=== PATIENT | male | born 2000 | race Caucasian/White ===

== ENCOUNTER 2023-07-16 09:07 | Outpatient (REF) | payer MEDICAID, SELFPAY ==
[2023-07-16 11:07] LABS: MANUAL DIFF FLAG NO
[2023-07-16 11:29] LABS: Basophils Absolute Auto 0.1 X10*3/uL (0.0-0.2); Basophils Percent Auto 1.4 % (0-2); Eosinophils Absolute Auto 0.1 X10*3/uL (0.0-0.4); Eosinophils Percent Auto 1.7 % (0-4); Hematocrit 48.3 % (42.0-52.0); Hemoglobin 15.4 g/dl (14.0-18.0); Imm Gran Abs Auto 0.01 X10*3/uL (0.00-0.03); Imm Gran Pct Auto 0.3 % (0.0-0.4); Lymphocytes Absolute Auto 1.4 X10*3/uL (1.2-4.9); Lymphocytes Percent Auto 40.1 % (20-40); Mean Corpuscular HGB Conc 31.9 g/dl (31.0-36.0); Mean Corpuscular Hemoglobin 26.3 pg (27.0-33.0); Mean Corpuscular Volume 82.4 fL (80.0-98.0); Mean Platelet Volume 10.6 fL (9.4-12.4); Monocytes Absolute Auto 0.4 X10*3/uL (0.1-1.2); Monocytes Percent Auto 10.1 % (2-11); Neutrophils Absolute Auto 1.7 x10*3/uL (2.0-8.3); Neutrophils Percent Auto 46.4 % (45-73); Platelet Count 277 X10*3/uL (160-400); Red Blood Count 5.86 X10*6/uL (4.60-5.80); Red Cell Distribution Width 12.7 % (11.0-16.0); White Blood Count 3.6 X10*3/uL (4.8-10.8)
[2023-07-16 11:39] LABS: Appearance Urine Clear; Color Urine Yellow; Glucose Urine UA Negative (Negative); Leukocyte Esterase Urine Negative (Negative); Nitrite Urine Negative (Negative); Specific Gravity - Urine 1.025 (1.005-1.025); Urine Blood Negative (Negative); Urine Ketones Negative (Negative); Urine Protein Negative (Neg-Trace)
[2023-07-16 12:46] LABS: Alanine Aminotransferase 17 U/L (0-40); Albumin Level 4.1 g/dL (3.5-5.0); Alkaline Phosphatase 63 U/L (39-117); Anion Gap 13 (12-20); Aspartate Amino Transferase 16 U/L (5-37); Bilirubin Total 0.8 mg/dL (0.0-1.0); Blood Urea Nitrogen 13 mg/dL (9-16); Calcium 9.7 mg/dL (8.4-10.2); Carbon Dioxide 28 mmol/L (22-29); Chloride 102 mmol/L (96-108); Cholesterol 194 mg/dL (<200); Estimated Glomerular Filt Rate > 60; Glucose Fasting 74 mg/dL (60-99); HDL Cholesterol 45 mg/dL (>40); LDL Cholesterol Calculated 123 mg/dL (<100); Potassium 3.9 mmol/L (3.3-5.1); Sodium 139 mmol/L (135-145); Total Protein 7.1 g/dL (6.5-8.0); Triglycerides 131 mg/dL (<150)
[2023-07-16 13:04] LABS: TSH reflex Free T4 0.76 uIU/mL (0.32-4.0)
== END 2023-07-16 09:08 | disposition home or self-care (01) ==
LOC: HO.HMGCLDS 09:07
PROVIDERS: PCP Nurse Practitioner Family; Visit Provider Nurse Practitioner Family
DX: Z00.00 Encounter for general adult medical examination without abnormal findings (principal)
CPT/HCPCS: 36415; 80053; 80061; 81003; 84443; 85025

== ENCOUNTER 2023-07-28 08:18 | Outpatient (AMB) | payer MEDICAID, SELFPAY ==
--- NOTE | 2023-07-28 07:24 | MHC.PC.OV ---
Intake Visit Reasons: Follow up Iphone [phone] Allergies No Known Allergies [No Known Allergies*] Allergy (Verified 03/18/23 10:21) Medication List - Last Reconciled 07/28/23 by MI Vázquez sertraline 50 mg PO DAILY Tobacco use date assessed: 03/18/23 HPI Follow up Iphone [phone] HPI Details Anxiety/depression: Pt is currently taking sertraline 25mg. He reports that this is helpful but may need increased. Will increase to 50mg. Pt is seeing a psychiatrist and a therapist. Denies any SI and HI. PFSH Family History Maternal Uncle Substance use disorder Maternal Grandmother Mental health disorder Mother Mental health disorder Social History Housing: House Patient Tobacco Use Status: Never used Tobacco e-Cigarette/Vaping Use: Never Used Second Hand Smoke Exposure: Yes service: No Current occupational status: employed Current occupation: [employer] Current occupational exposures/hazards: No Cognitive needs: No Hearing needs: No Vision needs: No Questionnaire Thrive Questionnaire Date Thrive assessed: 03/18/23 KAPIL-7 AMB Questionnaire KAPIL-7 Date KAPIL - 7 assessed: 03/18/23 Source: Developed by Drs. Miguel Moura, Jessica Tolbert, Sim Garzon and colleagues, with an educational rick from [employer]. Review of Systems Const Reports as per HPI Physical exam (Primary Care) Tobacco/Smoking Status: Tobacco use Status Tobacco use date assessed 03/18/23 07/28/23 07:26 Patient Tobacco Use Status Never used Tobacco 07/28/23 07:26 e-Cigarette/Vaping Use Never Used 07/28/23 07:26 Thrive Assessment: Date of Thrive Assessment Date Thrive assessed 03/18/23 07/28/23 07:26 Const General: cooperative Orientation/consciousness: patient oriented x3 Neuro General: patient oriented x3 Psych Appearance: grossly normal Mental Status: mental status grossly normal Speech and movement: Clear speech present Affect: normal affect Attitude: cooperative Thought process: Normal thought process present Thought content: Normal thought content present Insight: Good insight present (Psych) Judgement: Good judgement present (Psych) Telehealth Telehealth Location of provider rendering services: practice address Location of patient: address on file Patient Identification confirmed using: Name, : Yes Telehealth method: video Patient verbally consented to treatment: Yes Patient verbally consented to billing insurance company: Yes Patient informed of any privacy concerns related to visit: Yes Minutes spent on Phone/Video with Pt.: 10 Assessment and Plan Assessment & Plan (1) Anxiety and depression: Code(s): F41.9 - Anxiety disorder, unspecified; F32.A - Depression, unspecified Plan: Sertraline increased from 25mg to 50mg Plan The patient agreed to the use of a medical service representative for this encounter. Scribed for SAMY Cruz-BC by Kristin Valerio medical service representative, on 07/28/2023 at 07:20 EST. Orders: Orders Complete Blood Count Auto Diff Today F32.A - Depression, unspecified, F41.9 - Anxiety disorder, unspecified Comprehensive Met. Panel Today F32.A - Depression, unspecified, F41.9 - Anxiety disorder, unspecified TSH reflex Free T4 Today F32.A - Depression, unspecified, F41.9 - Anxiety disorder, unspecified UA CC w/rflx Micro + Cult Today F32.A - Depression, unspecified, F41.9 - Anxiety disorder, unspecified Medications: Changed From sertraline 25 mg PO DAILY 90 tabs 1RF To sertraline 50 mg PO DAILY 90 tabs 1RF Coding Level of Care Code Tele Est Pt Level 3 (32226) Diagnoses Anxiety and depression F41.9; F32.A
== END 2023-07-28 10:23 | disposition home or self-care (01) ==
PROVIDERS: PCP Nurse Practitioner Family; Visit Provider Nurse Practitioner Family
DX: F41.9 Anxiety disorder, unspecified (principal); F32.A Depression, unspecified
CPT/HCPCS: 99213

== ENCOUNTER 2024-01-18 08:21 | Outpatient (AMB) | payer BC, SELFPAY ==
[2024-01-18 09:04] VITALS: BP 120/72; PULSE 62; O2SAT 98; BMI 26.1
--- NOTE | 2024-01-18 09:04 | MHC.OFFWIV ---
Intake Vital Signs 01/18/24 09:04 Height 5 ft 10 in Weight 182 lb BMI 26.1 BP 120/72 Blood Pressure Location Lt brachial Position Sitting Pulse 62 Pulse Source Pulse Oximeter Pulse Oximetry (%) 98 Oxygen Delivery Method Room Air Intake Visit Reasons: ? Sinus infection Intake Note: Patient is here today with left side of nostril under left eye, losing sleep, took Advil which seemed to have helped. Patient Tobacco Use Status: Never used Tobacco Allergies No Known Allergies [No Known Allergies*] Allergy (Verified 01/18/24 10:16) Medication List - Last Reconciled 01/18/[address] [facility] methylphenidate HCl 5 mg PO BID methylphenidate HCl 10 mg PO BID sertraline 50 mg PO DAILY Do you need a note to return to daycare/school/sports/work: No HPI HPI Comments History of Present Illness Details cold sx for a few weeks having pain under left eye/cheek area that started over the last few days + sinus congestion, not a lot of drainage denies bloody drainage not using any nasal sprays denies fever PFSH Family History Maternal Uncle Substance use disorder Maternal Grandmother Mental health disorder Mother Mental health disorder Social History Housing: House Patient Tobacco Use Status: Never used Tobacco e-Cigarette/Vaping Use: Never Used Second Hand Smoke Exposure: Yes service: No Current occupational status: employed Current occupation: [employer] Current occupational exposures/hazards: No Cognitive needs: No Hearing needs: No Vision needs: No Review of Systems Const All systems reviewed & are unremarkable except as noted in HPI and below Physical Exam Vital Signs: Last Vital Signs Pulse 62 01/18/24 09:04 BP 120/72 01/18/24 09:04 Pulse Ox 98 01/18/24 09:04 Oxygen Delivery Method Room Air 01/18/24 09:04 BMI result Body Mass Index 26.1 Const Other: Awake alert NAD Sclera and conjunctiva clear bilat TM intact and clear bilat Nares with mucoid discharge worse on the left side, nares erythematous and edematous, frontal and maxillary sinus tenderness bilat worse on the left MMM, pharynx positive postnasal drip RRR LS CTAB Assessment & Plan Assessment & Plan (1) Acute bacterial sinusitis: Code(s): J01.90 - Acute sinusitis, unspecified; B96.89 - Other specified bacterial agents as the cause of diseases classified elsewhere Plan . Medications: New amoxicillin-pot clavulanate 875-125 mg 1 tab PO BID 14 tabs 0RF 7 days Coding Level of Care Code Est Pt Level 3 (82801) Diagnoses Acute bacterial sinusitis J01.90; B96.89
== END 2024-01-18 10:20 | disposition home or self-care (01) ==
PROVIDERS: PCP Nurse Practitioner Family; Visit Provider Nurse Practitioner Family
DX: J01.90 Acute sinusitis, unspecified (principal); B96.89 Other specified bacterial agents as the cause of diseases classified elsewhere
CPT/HCPCS: 99213

== ENCOUNTER 2024-04-25 09:02 | Outpatient (AMB) | payer BC, SELFPAY ==
--- NOTE | 2024-04-25 09:07 | MHC.PC.OV ---
Vital Signs 04/25/24 09:11 Height 5 ft 10 in Weight 183 lb BMI 26.3 BP 100/60 Blood Pressure Location Rt brachial Position Sitting Pulse 66 Pulse Source Pulse Oximeter Pulse Oximetry (%) 98 Oxygen Delivery Method Room Air Intake Visit Reasons: PE Intake Note: Patient here for physical exam Allergies No Known Allergies [No Known Allergies*] Allergy (Verified 04/25/24 09:33) Medication List - Last Reconciled 04/25/24 by MI Vázquez methylphenidate HCl 20 mg PO BID sertraline 50 mg PO DAILY Tobacco use date assessed: 04/25/24 Dental Screening Dental Screen Date: 04/25/24 Did you have a dental visit in the last 12 months?: No Did you have a dental problem in the last 6 months where you did not have access to dental care?: No Was dental information given to patient?: Patient has dentist HPI PE HPI Details Pt is here for a PE. Labs have already been ordered. Pt sees a therapist and a psychiatrist. Denies any SI and HI. PFSH Family History Maternal Uncle Substance use disorder Maternal Grandmother Mental health disorder Mother Mental health disorder Social History Housing: House Patient Tobacco Use Status: Never used Tobacco e-Cigarette/Vaping Use: Never Used Second Hand Smoke Exposure: Yes service: No Current occupational status: employed Current occupation: [employer] Current occupational exposures/hazards: No Cognitive needs: No Hearing needs: No Vision needs: No Questionnaire PHQ-9 Over the last 2 weeks, how often have you been bothered by any of the following problems? 1. Little interest or pleasure in doing things: not at all 2. Feeling down, depressed, or hopeless: several days 3. Trouble falling or staying asleep, or sleeping too much: several days 4. Feeling tired or having little energy: several days 5. Poor appetite or overeating: several days 6. Feeling bad about yourself - or that you are a failure or have let yourself or your family down: more than half the days 7. Trouble concentrating on things, such as reading the newspaper or watching television: not at all 8. Moving or speaking so slowly that other people could have noticed. Or the opposite - being so fidgety or restless that you have been moving around a lot more than usual: not at all 9. Thoughts that you would be better off or of hurting yourself in some way: several days Total score: 7 Depression Screening Interpretation: Negative (denies any SI or HI) Depression Screening Done: Yes 25596 - PHQ-9 Billing: Yes Source: Developed by Drs. Miguel Moura, Jessica Tolbert, Sim Garzon and colleagues, with an educational rick from [employer]. Thrive Questionnaire Date Thrive assessed: 04/25/24 I am a: Patient What is your living situation today?: I have a steady place to live Within the past 12 months, did the food you bought not last and you didn't have the money to get more?: Never true Within the past 12 months, did you worry whether your food would run out before you got money to buy more?: Never true Do you have trouble paying for medicines?: No Do you have trouble getting transportation to medical appointments?: No Do you have trouble paying your heating and electricity bill?: No Do you have trouble taking care of your child, family member or friend?: No Do you have trouble with day-to-day activities such as bathing, preparing meals, shopping, managing finances, etc.?: No Are you currently unemployed and looking for a job?: No Are you interested in more education?: No Currently or been in a relationship where the following occur: I choose not to answer this question THRIVE Score: 0 AUDIT C Alcohol Use Questionnaire (AUDIT-C) 1. How often do you have a drink containing alcohol?: Monthly or less 2. How many drinks containing alcohol do you have on a typical day when you are drinking?: 1 or 2 3. How often do you have six or more drinks on one occasion?: Never Total Score: 1 Score Reviewed/Action Taken: No KAPIL-7 AMB Questionnaire KAPIL-7 Date KAPIL - 7 assessed: 04/25/24 Feeling nervous, anxious, or on edge: 2 = More than half the days Not being able to stop or control worryin = Several days Worrying too much about different things: 1 = Several days Trouble relaxin = Several days Being so restless that it is hard to sit still: 3 = Nearly every day Becoming easily annoyed or irritable: 2 = More than half the days Feeling afraid as if something awful might happen: 1 = Several days Total KAPIL-7 score (0-4 normal; 5-9 mild; 10-14 moderate; 15-21 severe): 11 Source: Developed by Drs. Miguel Moura, Jessica Tolbert, Sim Garzon and colleagues, with an educational rick from [employer]. KAPIL-7 Assessment Billing KAPIL-7 Assessment Tool: KAPIL-7 Assessment 75755 (has a psychiatrist and psychologist, denies any SI or HI) Review of Systems Const Denies chills and Denies fever(s) Eyes Denies blurry vision ENT Denies vertigo, Denies dizziness and Denies sore throat Card Denies chest pain at rest, Denies chest pain with activity, Denies diaphoresis, Denies dyspnea and Denies dyspnea on exertion Resp Denies cough, Denies dyspnea, Denies dyspnea on exertion and Denies wheezing GI Denies abdominal pain, Denies melena, Denies hematochezia, Denies constipation, Denies diarrhea and Denies loose stools Denies hematuria Musc Denies numbness and Denies tingling Skin/Breast Denies lesions Neuro Denies vertigo, Denies dizziness, Denies numbness and Denies tingling Psych Denies anxiety, Denies depression, Denies homicidal ideation, Denies suicidal ideation and Denies other (substance abuse) Aller/Immun Denies wheezing Physical exam (Primary Care) Vital Signs: Last Vital Signs Pulse 66 04/25/24 09:11 BP 100/60 04/25/24 09:11 Pulse Ox 98 04/25/24 09:11 Oxygen Delivery Method Room Air 04/25/24 09:11 BMI result Body Mass Index 26.3 Tobacco/Smoking Status: Tobacco use Status Tobacco use date assessed 04/25/24 04/25/24 09:14 Patient Tobacco Use Status Never used Tobacco 04/25/24 09:08 e-Cigarette/Vaping Use Never Used 04/25/24 09:08 PHQ-9: PHQ-9 Score PHQ-9: Total score 7 04/25/24 09:18 Depression Screening Interpretation: Negative (denies any SI or HI) Thrive Assessment: Date of Thrive Assessment Date Thrive assessed 04/25/24 04/25/24 09:18 Currently or been in a relationship where the following occur: I choose not to answer this question Const General: cooperative Nutritional Appearance: well nourished Orientation/consciousness: patient oriented x3 HENMT Head: Yes normal to inspection, Yes normocephalic and Yes atraumatic Ears: TM's normal bilaterally Eyes General: appearance normal, both eyes and all related structures Alignment and Position: alignment normal and position normal Neck Neck: Yes normal visual inspection and Yes no lymphadenopathy Thyroid: Thyroid normal Resp Effort & Inspection: normal respiratory effort Auscultation: clear to auscultation bilaterally Cardio Rate: regular rate Rhythm: regular rhythm Heart sounds: S1 normal heart sound present, S2 normal heart sound present and no murmurs GI Palpation (GI): Soft to palpation and nontender Auscultation: normal bowel sounds Male General Exam: Yes normal external exam Penis: normal penis Scrotum: scrotum normal, testes descended bilaterally and no inguinal hernias Testes: no testicular mass Skin Rashes: no rashes Neuro General: patient oriented x3, moves all extremities, no focal motor deficits and deep tendon reflexes 2+ bilaterally Romberg Test: Negative Psych Appearance: grossly normal Mental Status: mental status grossly normal Speech and movement: Normal speech and movement present Affect: normal affect Attitude: cooperative Thought process: Normal thought process present Thought content: Normal thought content present Insight: Good insight present (Psych) Judgement: Good judgement present (Psych) Assessment and Plan Assessment & Plan (1) Physical exam: Code(s): Z00.00 - Encounter for general adult medical examination without abnormal findings Plan: Labs have been ordered (2) Anxiety and depression: Code(s): F41.9 - Anxiety disorder, unspecified; F32.A - Depression, unspecified Plan: Seeing a therapist and psychiatrist Plan The patient agreed to the use of a director medical surgical for this encounter. Scribed for MI Cruz by Kristin Valerio director medical surgical, on 04/25/2024 at 09:25 EST. Coding Level of Care Code Est Pt Prev Care 18-39y(37146) Diagnoses Physical exam Z00.00 Anxiety and depression F41.9; F32.A Additional Codes KAPIL-7 Assessment Billing - KAPIL-7 Assessment Tool: KAPIL-7 Assessment 20592 ([id number])
[2024-04-25 09:11] VITALS: BP 100/60; PULSE 66; O2SAT 98; BMI 26.3
== END 2024-04-25 09:31 | disposition home or self-care (01) ==
PROVIDERS: PCP Nurse Practitioner Family; Visit Provider Nurse Practitioner Family
DX: Z00.00 Encounter for general adult medical examination without abnormal findings (principal); F41.9 Anxiety disorder, unspecified; F32.A Depression, unspecified
CPT/HCPCS: 99395

== ENCOUNTER 2025-05-24 08:28 | Outpatient (AMB) | payer OTHER, SELFPAY ==
--- NOTE | 2025-05-24 08:38 | MHC.PC.OV ---
Vital Signs 05/24/25 08:39 Height 5 ft 10 in Weight 189 lb BMI 27.1 BP 126/80 Blood Pressure Location Lt brachial Position Sitting Pulse 60 Pulse Source Pulse Oximeter Temp 97.8 F Temp Source Oral Pulse Oximetry (%) 98 Oxygen Delivery Method Room Air Intake Visit Reasons: PE Insurance Case Manager Required: No Accompanied by: Self / Same As Patient Allergies No Known Allergies (No Known Allergies*) Allergy (Verified 05/24/25 08:57) Medication List - Last Reconciled 05/24/25 by SAMY Vázquez- fluoride (sodium) 1.1% (Sodium Fluoride 5000 Dry Mouth) PO BID hydroxyzine pamoate 25 - 50 mg PO BID PRN methylphenidate HCl ER ([place]a) 54 mg PO QAM sertraline 100 mg PO DAILY Tobacco use date assessed: 05/24/25 Dental Screening Dental Screen Date: 05/24/25 Did you have a dental visit in the last 12 months?: Yes Did you have a dental problem in the last 6 months where you did not have access to dental care?: No Was dental information given to patient?: Patient has dentist HPI PE HPI Details History of Present Illness The patient is a 24-year-old male presenting with a follow-up physical examination. He denies experiencing any chest pain, dyspnea, abdominal pain, hematochezia, constipation, or diarrhea. He also denies any suicidal or homicidal ideation. The patient is currently employed at [employer] and reports doing well overall. He is under the care of a psychiatrist and a therapist, indicating ongoing mental health management. Health Maintenance Social History - Employment: Works at [employer] Review of Systems - Cardiovascular: Denies chest pain - Respiratory: Denies dyspnea - Gastrointestinal: Denies abdominal pain, hematochezia, constipation, diarrhea - Psychiatric: Denies suicidal ideation, denies homicidal ideation Physical Exam General: Cooperative, healthy appearing, comfortable, no acute distress and well developed Orientation: Patient oriented x3 Limitations: No limitations Head: Normal to inspection Ears: Hearing grossly normal bilaterally Nose: Normal external nose present Face and sinus: Normal facial exam Eyes: Appearance normal, both eyes and all related structures Neck: Normal visual inspection and Yes full ROM Respiratory: Normal respiratory effort and able to speak in complete sentences. Clear to auscultation bilaterally Cardiovascular: Regular rate and rhythm. Normal S1 and S2 GI: Normal to inspection. Soft to palpation and nontender : testicles without masses/lesions and no hernias appreciated Skin: No rashes or lesions noted Neuro: Patient oriented x3 Extremities: Normal to inspection Results Plan The patient is advised to complete the ordered laboratory tests promptly to facilitate a comprehensive assessment during the follow-up physical examination. Continued engagement with mental health services, including his psychiatrist and therapist, is recommended to maintain his current well-being. Discussion Notes I discussed the importance of completing the laboratory tests soon to ensure a thorough evaluation during the follow-up visit. We also reviewed the patient's mental health management, emphasizing the value of ongoing therapy and psychiatric support. Patient Instructions - Complete the lab tests as soon as possible. - Continue attending sessions with your psychiatrist and therapist. [facility] Surgical History No pertinent past surgical history Family History Maternal Uncle Substance use disorder Maternal Grandmother Mental health disorder Mother Mental health disorder Social History Housing: House Patient Tobacco Use Status: Never used Tobacco e-Cigarette/Vaping Use: Never Used Second Hand Smoke Exposure: Yes service: No Current occupational status: employed Current occupation: [employer] Current occupational exposures/hazards: No Cognitive needs: No Hearing needs: No Vision needs: No Questionnaire PHQ-9 Over the last 2 weeks, how often have you been bothered by any of the following problems? 1. Little interest or pleasure in doing things: several days 2. Feeling down, depressed, or hopeless: several days 3. Trouble falling or staying asleep, or sleeping too much: more than half the days 4. Feeling tired or having little energy: more than half the days 5. Poor appetite or overeating: more than half the days 6. Feeling bad about yourself - or that you are a failure or have let yourself or your family down: more than half the days 7. Trouble concentrating on things, such as reading the newspaper or watching television: more than half the days 8. Moving or speaking so slowly that other people could have noticed. Or the opposite - being so fidgety or restless that you have been moving around a lot more than usual: several days 9. Thoughts that you would be better off or of hurting yourself in some way: not at all Total score: 13 Depression Screening Interpretation: Positive (denies any SI or HI, has a psychiatrist and therapist) Depression Screening Follow-up: Existing condition and In treatment Depression Screening Done: Yes 35681 - PHQ-9 Billing: Yes Source: Developed by Drs. Miguel Moura, Jessica Tolbert, Sim Garzon and colleagues, with an educational rick from [employer]. Thrive Questionnaire Date Thrive assessed: 05/24/25 I am a: Patient What is your living situation today?: I have a place to live, but I am worried about losing it in the future Within the past 12 months, did the food you bought not last and you didn't have the money to get more?: Never true Within the past 12 months, did you worry whether your food would run out before you got money to buy more?: Sometimes True Do you have trouble paying for medicines?: No Do you have trouble getting transportation to medical appointments?: No Do you have trouble paying your heating and electricity bill?: No Do you have trouble taking care of your child, family member or friend?: No Do you have trouble with day-to-day activities such as bathing, preparing meals, shopping, managing finances, etc.?: No Are you currently unemployed and looking for a job?: No Are you interested in more education?: Yes Please select the resources that you would like help with: Childcare Currently or been in a relationship where the following occur: No concerns reported THRIVE Score: 2 AUDIT C Alcohol Use Questionnaire (AUDIT-C) 1. How often do you have a drink containing alcohol?: Monthly or less 2. How many drinks containing alcohol do you have on a typical day when you are drinking?: 1 or 2 3. How often do you have six or more drinks on one occasion?: Less than monthly Total Score: 2 Score Reviewed/Action Taken: Yes KAPIL-7 AMB Questionnaire KAPIL-7 Date KAPIL - 7 assessed: 05/24/25 Feeling nervous, anxious, or on edge: 3 = Nearly every day Not being able to stop or control worryin = Nearly every day Worrying too much about different things: 3 = Nearly every day Trouble relaxin = Nearly every day Being so restless that it is hard to sit still: 3 = Nearly every day Becoming easily annoyed or irritable: 2 = More than half the days Feeling afraid as if something awful might happen: 3 = Nearly every day Total KAPIL-7 score (0-4 normal; 5-9 mild; 10-14 moderate; 15-21 severe): 20 Source: Developed by Drs. Miguel Moura, Jessica Tolbert, Sim Garzon and colleagues, with an educational rick from [employer]. KAPIL-7 Assessment Billing KAPIL-7 Assessment Tool: KAPIL-7 Assessment 49627 (denies any si or hi, has a therapist and psychiatrist) Physical exam (Primary Care) Vital Signs: Last Vital Signs Temp 97.8 F 05/24/25 08:39 Pulse 60 05/24/25 08:39 BP 126/80 05/24/25 08:39 Pulse Ox 98 05/24/25 08:39 Oxygen Delivery Method Room Air 05/24/25 08:39 BMI result Body Mass Index 27.1 Tobacco/Smoking Status: Tobacco use Status Tobacco use date assessed 05/24/25 05/24/25 08:43 Patient Tobacco Use Status Never used Tobacco 05/24/25 08:38 e-Cigarette/Vaping Use Never Used 05/24/25 08:38 PHQ-9: PHQ-9 Score PHQ-9: Total score 13 05/24/25 08:43 Depression Screening Interpretation: Positive (denies any SI or HI, has a psychiatrist and therapist) Depression Screening Follow-up: Existing condition and In treatment Thrive Assessment: Date of Thrive Assessment Date Thrive assessed 05/24/25 05/24/25 08:43 Currently or been in a relationship where the following occur: No concerns reported Coding Level of Care Code Est Pt Prev Care 18-39y(08951) Diagnoses Physical exam Z00.00 Anxiety and depression F41.9; F32.A Additional Codes PHQ-9 - 48565 - PHQ-9 Billing: Yes ([id number]) KAPIL-7 Assessment Billing - KAPIL-7 Assessment Tool: KAPIL-7 Assessment 03402 ([id number]) Assessment & Plan Assessment & Plan (1) Physical exam: Code(s): Z00.00 - Encounter for general adult medical examination without abnormal findings Category: Medical (2) Anxiety and depression: Code(s): F41.9 - Anxiety disorder, unspecified; F32.A - Depression, unspecified Category: Medical Plan .
[2025-05-24 08:39] VITALS: BP 126/80; PULSE 60; TEMP 36.6; O2SAT 98; BMI 27.1
== END 2025-05-24 09:20 | disposition home or self-care (01) ==
LOC: HO.HMCC 08:28
PROVIDERS: PCP Nurse Practitioner Family; Visit Provider Nurse Practitioner Family
DX: Z00.00 Encounter for general adult medical examination without abnormal findings (principal); F41.9 Anxiety disorder, unspecified; F32.A Depression, unspecified

== ENCOUNTER → 2025-05-24 08:28 | Outpatient (BNVA) | payer OTHER, SELFPAY | PROVIDERS: PCP Nurse Practitioner Family; Visit Provider Nurse Practitioner Family | DX: Z00.00 Encounter for general adult medical examination without abnormal findings (principal); F41.9 Anxiety disorder, unspecified; F32.A Depression, unspecified | CPT/HCPCS: 96127; 99395 ==

== ENCOUNTER 2025-11-12 07:54 | Outpatient (AMB) | payer OTHER, SELFPAY ==
--- NOTE | 2025-11-12 08:01 | MHC.OFFVIS ---
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 Michaud. He has a past medical history of anxiety and depression. He presents to the office today for - vasectomy evaluation Vasectomy evaluation The patient presents for vasectomy consultation.? He is currently He has fathered 2 children, with a single partner? The youngest child is 3 months His partner is aware and permissive for a vasectomy Current form of control is hormones Current employment is works at [employer] as well as [employer] The vasectomy may be complicated due to a history of no complicating issues. Patient education has been provided via AUA video, via printed information, risks of failure, recovery time, bruising and potential pain syndrome have been stressed Discussion today focused on the presence of vasectomy and the risks, benefits and alternatives that are available. Vasectomy as intended as a permanent form of control. Printed information and literature was provided to the patient. Overall there is a one in 2500 failure rate. This can occur at any time after vasectomy. Risks were discussed highlighting hematoma, spermatocele, epididymal congestion, development of sperm antibodies, and development of chronic pain estimated between 1-5%. The procedure was reviewed in detail. Anatomical diagrams of the male genitalia were used to explain the location of the vas deferens. The vas deferens will be transected, the proximal end will be cauterized, a metal clip would be applied to separate the 2 vas deferens ends. It was explained the procedure will be done in the office and takes approximately 10-15 minutes. Less common problems that arise with vasectomy include hematoma, bleeding, allergic reaction to anesthetic, epididymal infection, epididymal congestion, scrotal discomfort, spermatic leak, spermatic granuloma and the possibility of antisperm antibodies. He understands these risks and wishes to proceed. Consent was signed at the office today. He also understands that it takes 12 weeks for sperm to fully clear the system. He will need to provide a semen sample at 12 weeks and if this is not clear a 2nd sample at 16 weeks. Medical clearance to stop using protection will only be provided if he satisfies published criteria for sperm clearance. 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 Current occupational exposures/hazards: No Cognitive needs: No Hearing needs: No Vision needs: No Review of Systems Const All systems reviewed & are unremarkable except as noted in HPI and below Physical Exam Const General: cooperative, healthy appearing, comfortable, no acute distress, well developed, alert and awake Orientation/consciousness: patient oriented x3 Limitations: no limitations HEENT Head: Yes normal to inspection, Yes normocephalic and Yes atraumatic Ears: hearing grossly normal bilaterally Eyes General: appearance normal, both eyes and all related structures Neck Neck: Yes normal visual inspection and Yes trachea midline Chest Chest palpation & inspection: normal inspection of the chest Resp Effort & Inspection: normal respiratory effort and able to speak in complete sentences Cardio Rate: regular rate GI Inspection: Yes normal to inspection General: Yes no CVA tenderness Penis: normal penis and circumcised Meatus: meatus normal Testes: Testes normal Back/Spine/Pelvis Back: no CVA tenderness Skin General skin exam: no rashes or lesions noted Neuro General: patient oriented x3 Extrem General: Yes normal to inspection Psych Appearance: grossly normal and well kempt Mental Status: mental status grossly normal Speech and movement: Normal speech and movement present and Clear speech present Affect: normal affect Attitude: cooperative Thought process: Normal thought process present Thought content: Normal thought content present Insight: Fair insight present (Psych) Judgement: Fair judgement present (Psych) Assessment & Plan Assessment & Plan (1) Vasectomy evaluation: Code(s): Z30.09 - Encounter for other general counseling and advice on contraception Category: Medical (2) Anxiety about health: Code(s): R45.89 - Other symptoms and signs involving emotional state Category: Medical Plan Vasectomy was discussed in detail; risks and benefits. All questions were answered. Prescriptions provided; we discussed importance of bringing medication to office day of procedure. Consent obtained. We did discuss semen analysis in office verses fellows kit. Will schedule for in office vasectomy. Follow-up per doctor's orders; or sooner with any issues, concerns, and or questions. Medications: New tramadol Bringing medication to office day of procedure 50 mg PO Q8H PRN 7 tabs 0RF pain N43.3 - Hydrocele, unspecified diazepam (Valium) Bringing medication to office day of procedure 2 mg PO DAILY 2 tabs 0RF anxiety R45.89 - Other symptoms and signs involving emotional state Patient Instructions: The patient had an opportunity to ask questions regarding the treatment plan. All questions were answered. Physical exam, labs, and imaging were discussed and reviewed in detail. As well as risks, benefits, and discussion of treatment choices. No major barriers to understanding were identified. The patient expressed understanding and agreement with the above treatment plan. The patient was made aware they should contact our office by phone for worsening of their current condition, the appearance of new symptoms, or with any questions or concerns. Compliance is encouraged with any medications and follow up testing that is ordered. It is a privilege to be allowed the opportunity to participate in? your urological care.? Again, if you have any questions or concerns If you have any questions or concerns please do not hesitate to contact me. The office is [phone]. This note is constructed using voice recognition software. While every effort has been made to ensure accuracy composition mixer errors may have been included. Yours sincerely, MI Camarena Coding Level of Care Code New Pt Level 4 (29339) Diagnoses Vasectomy evaluation Z30.09 Anxiety about health R45.89
== END 2025-11-12 08:30 | disposition home or self-care (01) ==
LOC: HO.HUSH 07:55
PROVIDERS: PCP Nurse Practitioner Family; Visit Provider Nurse Practitioner Family
DX: Z30.09 Encounter for other general counseling and advice on contraception (principal); R45.89 Other symptoms and signs involving emotional state
CPT/HCPCS: 99204

== ENCOUNTER → 2025-11-12 07:54 | Outpatient (BNVA) | payer OTHER, SELFPAY | PROVIDERS: PCP Nurse Practitioner Family; Visit Provider Nurse Practitioner Family | DX: Z30.09 Encounter for other general counseling and advice on contraception (principal); R45.89 Other symptoms and signs involving emotional state; N43.3 Hydrocele, unspecified | CPT/HCPCS: 99202 ==